=== PATIENT | female | born 1980 | race American Indian/Alaskan Native ===

== ENCOUNTER → 2024-10-23 | Outpatient (CLI) | payer MEDICAID, SELFPAY ==
--- NOTE | 2024-10-23 14:53 | XR_ITS ---
Examination: Left elbow 3 views Technique: Elbow AP, oblique, lateral 3 views Exam date and time: October 23, 2024 1504 hours INDICATIONS: Left elbow pain beginning 3 weeks ago FINDINGS: No fracture or dislocation. No significant arthritic change No elbow effusion IMPRESSION: Negative for osseous abnormality.
== END | disposition home or self-care (01) ==
PROVIDERS: PCP Student in an Organized Health Care Education/Training Program; Referring Provider Student in an Organized Health Care Education/Training Program; Visit Provider Student in an Organized Health Care Education/Training Program
DX: M25.522 Pain in left elbow (principal)
CPT/HCPCS: 73080

== ENCOUNTER → 2024-11-14 | Outpatient (CLI) | payer MEDICAID, SELFPAY ==
--- NOTE | 2024-11-14 | XR_ITS ---
EXAMINATION: Cervical spine, 5 views Technique: Cervical spine AP, AP odontoid, lateral, bilateral obliques, 5 views Exam date and time: November 14, 2024, 1335 hours INDICATIONS: Neck pain radiating down the left arm beginning one week ago FINDINGS: Reversal normal cervical lordosis. Moderate degenerative disc disease C4-C5, C5-C6 with moderate bilateral neural foraminal stenosis at these levels Intact odontoid No fracture IMPRESSION: Moderate degenerative disc disease C4-C5, C5-C6
== END | disposition home or self-care (01) ==
LOC: CDIM 12:31
PROVIDERS: PCP Student in an Organized Health Care Education/Training Program; Referring Provider Student in an Organized Health Care Education/Training Program; Visit Provider Student in an Organized Health Care Education/Training Program
DX: M50.321 Other cervical disc degeneration at C4-C5 level (principal)
CPT/HCPCS: 72050

== ENCOUNTER 2025-02-09 13:41 | Emergency (ER) | payer MEDICAID, SELFPAY ==
[2025-02-09 13:42] VITALS: BMI 41.5
--- NOTE | 2025-02-09 14:33 | XR_ITS ---
AP upright chest film on 02/09/2025 at 2:49 p.m. Comparison study 01/01/2023 INDICATION: Chest pain shortness of breath for 1 week Findings heart size is slightly magnified by the portable film technique, it is within normal limits as is the mediastinum and hilar regions. Both lungs and pleural space are clear. No abnormalities are seen in the bones IMPRESSION: Normal chest
--- NOTE | 2025-02-09 14:33 | EKG_ITS ---
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
--- NOTE | 2025-02-09 14:34 | EDRME_ITS ---
Rapid Medical Screening Exam RME Arrival date/time: 02/09/25 13:41 44-year-old female with no known medical history presents to the emergency room with a chief complaint of chest pain, palpitations, shortness of breath, cough x 3 days I have greeted and performed a focused initial assessment of this patient. A c omprehensive ED assessment and evaluation of the patient, analysis of all test results, and completion of the medical decision making process will be conducted by additional ED providers. Chief Complaint: Shortness of Breath/Dyspnea Time Seen by Provider: 02/09/25 14:10 Vital signs reviewed by provider: Yes Exam: Clear bilateral lung sounds Strong and regular rhythm Clinical Impression: Pneumonia versus URI
[2025-02-09 14:35] VITALS: BP 144/75; PULSE 87; RESP 20; TEMP 36.9
[2025-02-09 15:23] LABS: Basophils # (Auto) 0.0 Thou/mm3 (0.0-0.2); Basophils % (Auto) 0 % (0-2.5); Eosinophils # (Auto) 0.3 Thou/mm3 (0.0-0.5); Eosinophils % (Auto) 3 % (0-10); Hematocrit 37.1 % (36.0-46.0); Hemoglobin 12.5 g/dL (12.0-16.0); Immature Granulocytes Auto 0.06 Thou/mm3 (0.00-0.00); Lymphocytes # (Auto) 3.0 Thou/mm3 (1.0-4.8); Lymphocytes % (Auto) 31 % (10-50); Mean Corpuscular HGB Conc 33.7 g/dl (31.0-37.0); Mean Corpuscular Hemoglobin 31.6 pg (25.0-35.0); Mean Corpuscular Volume 94 fL (80-100); Monocytes # (Auto) 0.9 Thou/mm3 (0.0-0.8); Monocytes % (Auto) 9 % (0-12); Neutrophils # (Auto) 5.4 Thou/mm3 (1.8-7.7); Neutrophils % (Auto) 56 % (37-80); Nucleated Red Blood Cell # 0.00 Thou/mm3 (0.00-0.00); Nucleated Red Blood Cell % 0 /100 WBC (0); Platelet Count 287 Thou/mm3 (140-440); RDW Standard Deviation 42.4 fL (36.4-46.3); Red Blood Count 3.96 Miln/mm3 (4.00-5.20); White Blood Count 9.6 Thou/mm3 (3.6-11.0)
[2025-02-09 15:42] LABS: B-Type Natriuretic Peptide 58 pg/mL (0-100)
[2025-02-09 15:43] LABS: Alanine Aminotransferase 21 U/L (10-49); Albumin, Serum 4.6 gm/dL (3.5-5.0); Albumin/Globulin Ratio 1.3 (1.2-2.2); Alkaline Phosphatase 86 U/L (46-116); Anion Gap 11 (7-16); Aspartate Amino Transferase 21 U/L (0-34); BUN/Creatinine Ratio 10 Ratio (12-20); Bilirubin,Total 0.8 mg/dL (0.3-1.2); Blood Urea Nitrogen 8 mg/dL (9-23); Calcium 9.3 mg/dL (8.3-10.6); Calcium (Corrected) 9.3 mg/dL (8.5-10.1); Carbon Dioxide 25.3 mMol/L (20.0-31.0); Chloride 105 mMol/L (98-107); Creatinine (Component) 0.8 mg/dL (0.6-1.3); Estimated Creatinine Clearance 98.2 mL/min (>60); Globulin 3.5 gm/dL (2.3-3.5); Glucose 85 mg/dL (74-106); Osmolality,Calculated 278 (275-295); Potassium 4.0 mMol/L (3.4-5.1); Sodium 141 mMol/L (136-145); Total Protein 8.1 gm/dL (5.7-8.2); Troponin I < 0.002 ng/mL (0.0-0.045); eGFR > 60 See Note
[2025-02-09 16:25] LABS: Collection Type, Urine Clean Catch
[2025-02-09 16:41] LABS: Amphetamine/Methamp Scrn,U Negative (Negative); Barbiturate Screen,Urine Negative (Negative); Benzodiazepines Screen,Urine Negative (Negative); Benzoylecgonine Screen, Ur Negative (Negative); Bilirubin,Urine Negative (Negative); Blood,Urine 2+ (Negative); Clarity,Urine Clear (Clear/Hazy); Color,Urine Colorless (Lt Yel-Yel); Culture Indicated,Urine Not Indicated; Fentanyl Screen,Urine Negative (Negative); Glucose, Urine Negative (Negative); Ketones,Urine Negative (Negative); Leukocyte Esterase,Urine Negative (Negative); Nitrite,Urine Negative (Negative); Opiate Screen,Urine Negative (Negative); PH,Urine 7.0 (5.0-7.0); Protein,Urine Negative (Neg - Trace); RBC,Urine 3 /hpf (0-3); Specific Gravity,Urine 1.010 (1.001-1.035); Squamous Epithelial Cell,Urine 1 /hpf (0-5); THC Screen,Urine Negative (Negative); Urobilinogen,Urine Negative mg/dL (0.0-1.0); WBC,Urine 1 /hpf (0-5)
--- NOTE | 2025-02-09 17:35 | PD.EDSOB ---
ED SOB =RME/HPI General Chief Complaint: Shortness of Breath/Dyspnea Stated Complaint: SOB X30 MINS., COUGH X1 WEEK Time Seen by Provider: 02/09/25 14:10 Arrival date/time: 02/09/25 13:41 44-year-old female patient came in for evaluation regarding sudden onset of shortness of breath, lasting for 30 minutes, associated with hyperventilation, carpopedal spasm, jittery, palpitation and generalized numbness. Patient been complaining of nonproductive cough for 1 week. Patient denies any other complaints. Patient is ambulatory. RME / HPI RME / HPI Narrative: 02/09/25 13:41 44-year-old female with no known medical history presents to the emergency room with a chief complaint of chest pain, palpitations, shortness of breath, cough x 3 days I have greeted and performed a focused initial assessment of this patient. A comprehensive ED assessment and evaluation of the patient, analysis of all test results, and completion of the medical decision making process will be conducted by additional ED providers. Exam: Clear bilateral lung sounds Strong and regular rhythm Impression: Pneumonia versus URI Related Data Previous Rx's ?Medication ?Instructions ?Recorded cefuroxime axetil 250 mg tablet 250 mg PO Q12H #14 tabs 09/07/20 simethicone 180 mg capsule 180 mg PO BID PRN abdominal 09/07/20 distention #30 caps cyclobenzaprine 5 mg tablet 5 mg PO QDAY PRN muscle spasm #7 01/01/23 tabs ibuprofen 600 mg tablet 600 mg PO Q8H PRN fever or pain 01/01/23 #30 tabs lorazepam 0.5 mg tablet (Ativan) 0.5 mg PO BID PRN anxiety #14 tabs 02/09/25 Allergies Allergy/AdvReac Type Severity Reaction Status Date / Time No Known Allergies Allergy Verified 02/09/25 13:44 Review of Systems Review of Systems Narrative Review of Systems: Review of system reviewed and within normal limits except mentioned in HPI ED Exam Narrative Physical exam: VITAL SIGNS: Reviewed. GENERAL APPEARANCE: Alert and interactive, follows commands, no acute distress, HEAD AND FACE: Non-traumatic. ENT: PERRL, pink conjunctivitis, eyelid no trauma, Mucous membrane moist. NECK: Supple, nontender, no nuchal rigidity. CHEST: No tenderness, no crepitus, no paradoxical movement, no retractions. LUNGS: Clear, well ventilated, symmetric, no rales, no wheezing, no ronchi, no stridor, good breath sounds bilaterally. HEART: Regular rate, regular rhythm, no murmur, no gallops. ABDOMEN: Soft, positive bowel sounds, nondistended, no guarding, nontender, no rebound, no masses, RECTAL: Deferred. GENITAL: Deferred. NEUROLOGICAL: Gross motor function intact sensory function intact, Appropriate for age. MUSCULOSKELETAL: low back nontender, full range of motion. EXTREMITIES: Nontender, full range of motion. SKIN: Color pink, dry, no rash, no lacerations, no abrasions, no contusions. LYMPHATICS: Deferred. Course Quality Measures none Orders Category Date Time Status EKG (ED ONLY) *Do not use* NOW Care 02/09/25 14:33 Completed EKG (ED Only) Stat Exams 02/09/25 14:33 Draft XR chest 1V portable Stat Exams 02/09/25 14:33 Completed B-Type Natriuretic Peptide Stat Lab 02/09/25 15:03 Completed CBC Stat Lab 02/09/25 15:03 Completed Comprehensive Metabolic Panel Stat Lab 02/09/25 15:03 Completed Drug Screen,Urine Stat Lab 02/09/25 16:17 Completed Troponin I Stat Lab 02/09/25 15:03 Completed Urinalysis, C/S if Indicated Stat Lab 02/09/25 16:17 Completed Diazepam [Valium] Med 02/09/25 17:30 Once 5 mg PO X1 ONE Vital Signs Vital signs: Vital Signs Temperature 98.4 F 02/09/25 14:35 Pulse Rate 87 02/09/25 14:35 Respiratory Rate 20 02/09/25 14:35 Blood Pressure 144/75 H 02/09/25 14:35 Oxygen Delivery Method Room Air 02/09/25 14:35 Shortness of Breath / Dyspnea MDM Narrative MDM Narrative:: 44-year-old female patient came in for evaluation regarding sudden onset of shortness of breath, lasting for 30 minutes, associated with hyperventilation, carpopedal spasm, jittery, palpitation and generalized numbness. Patient been complaining of nonproductive cough for 1 week. Patient denies any other complaints. Patient is ambulatory. Patient's workup today including troponin all came back normal chest x-ray came back unremarkable no sign of pneumonia EKG showed sinus bradycardia, ventricular rate of 57 bpm, no ST segment elevation depression noted. Patient was given Valium p.o. in the emergency room with significant proving of symptoms I will send her home on Ativan as needed for anxiety. She is stable for discharged home Patient data External records reviewed:: None Clinical information provided by:: patient and family Social determinants that could affect healthcare access:: none Patient has the following chronic illnesses:: None How is presenting disease/condition affected by chronic disease/condition?: no chronic disease Evaluation data The following diagnostics were reviewed and interpreted by me:: lab results, radiology exam(s) and EKG tracing(s) Lab and/or radiology exams considered but not ordered:: None Interpretation Summary: See above Medications / Prescriptions Medications or Prescriptions considered but not ordered:: None Medication administrations:: Medication Administration History Discontinued Medications Diazepam (Diazepam 5 Mg Tablet) 5 mg PO X1 ONE Stop: 02/09/25 17:31 Valium Consultations Consultation(s) initiated? (list below): No Diagnosis Shortness of Breath Differential Diagnosis: community acquired pneumonia and asthma with exacerbation Most likely diagnosis given after review of the tests above:: Anxiety, cough Admission Indicated Admission indicated?: not indicated Admission Request Was there a request for admission?: No Disposition Plan Disposition Plan: Discharge Discharge Attestation Discharge Attestation: The patient and all family members were given an opportunity to ask questions and understood the discharge instructions. Discharge instructions specifically effects, indications for sooner follow up or return to the emergency department, and the expected course of current diagnosis. Patient condition: Stable Discharge Plan Plan Patient Disposition: HOME (Self Care) Discharge Disposition comment: Stable Prescriptions/Referrals Prescriptions/Med Rec: New lorazepam [Ativan] 0.5 mg tablet 0.5 mg PO BID PRN (Reason: anxiety) Qty: 14 0RF No Action cefuroxime axetil 250 mg tablet 250 mg PO Q12H Qty: 14 0RF simethicone 180 mg capsule 180 mg PO BID PRN (Reason: abdominal distention) Qty: 30 0RF ibuprofen 600 mg tablet 600 mg PO Q8H PRN (Reason: fever or pain) Qty: 30 0RF cyclobenzaprine 5 mg tablet 5 mg PO QDAY PRN (Reason: muscle spasm) Qty: 7 0RF Referrals: Alex,Monica, SHARE DAIR[facility] FARMER [Primary Care Provider] - In 1 week Problem List Clinical Impression: Shortness of breath, Anxiety Patient/Caregiver Discharge Instructions Discharge Activity: activity as tolerated Education Materials: ED Anxiety Reaction Additional Instructions: Thank you for the opportunity for serving you today. You are stable for discharged . You are advised to: Follow-up with your PCP in 1 to 2 days Return to ED for worsening of symptoms Increase oral fluids Take medication as prescribed Print Language: Greenlandic Stand Alone Forms: Devorah Award Info., Patient Portal Info Letter PA/[facility] FARMER Supervising Physician PA/[facility] FARMER Supervising Physician: MD agnes
[2025-02-09] MEDS: DIAZEPAM 5 MG TABLET PO (17:39)
== END 2025-02-09 17:44 | disposition home or self-care (01) ==
PROVIDERS: Nurse Practitioner Family; Emergency Provider Emergency Medicine; PCP Student in an Organized Health Care Education/Training Program
DX: F41.9 Anxiety disorder, unspecified (principal); R06.02 Shortness of breath; R00.1 Bradycardia, unspecified
CPT/HCPCS: 36415; 71045; 80053; 80307; 81001; 83880; 84484; 85025; 93005; 99283; A9270